=== PATIENT | male | born 1950 | race Caucasian/White ===

== ENCOUNTER 2019-05-12 01:46 | Emergency (ER) | payer MEDICARE, OTHER ==
[~2019-05-12] VITALS: Ht 185.4 cm; Wt 109.1 kg
[~2019-05-12 01:46] MED LIST: ACET325T26 PO; AMLO10TA4 PO; AMLO2.5T5 PO; AMLO5TAB4 PO; ASPI-515 PO; CALC-141 PO; CARV-39 PO; CLOP75TA52 PO; CYAN-27 PO; HYDR-3240 PO; INSU100I13 SQ; INSU100V14 SQ; LEVO500T47 PO; LOSA100T14 PO; METF10002 PO
[2019-05-12] MEDS ORDERED: methylPREDNISolone SOD SUCC 125 MG/2 ML IVPush STA (01:53)
[2019-05-12] MEDS ORDERED: ALBUTEROL/IPRATROPIUM 2.5MG/0.5MG, 3 ML NPPB ONE (02:00)
--- NOTE | 2019-05-12 02:05 | NUR ---
PT BIB EMS WITH COMPLAINTS OF SOB AND DIFFICULTY BREATHING OVER LAST FEW DAYS. PT DENIES CHEST PAIN, STEWART, N/V/D. PT FAMILY AT FOR SUPPORT. PT PROVIDED WARM BLANKET. PT CONNECTED TO MONITORING, CALL LIGHT WITHIN REACH, ALL SAFETY MEASURES IN PLACE.
[2019-05-12] MEDS ORDERED: ALBUTEROL/IPRATROPIUM 2.5MG/0.5MG, 3 ML ONE (02:06)
[2019-05-12 02:13] LABS: BASOPHILS # (AUTO) 0.05 x10^3/uL (0-0.1); BASOPHILS % (AUTO) 0 % (0-1); EOSINOPHILS # (AUTO) 0.66 x10^3/uL (0-0.4); EOSINOPHILS % (AUTO) 5 % (1-7); LYMPHOCYTES % (AUTO) 21 % (22-44); MD NO; MEAN CORPUSCULAR HEMOGLOBIN 28.3 pg (27.5-34.5); MEAN CORPUSCULAR HGB CONC 32.2 g/dL (33.2-36.2); MEAN CORPUSCULAR VOLUME 87.9 fL (81-97); MEAN PLATELET VOLUME 8.9 fL (7.4-10.4); MONOCYTES # (AUTO) 0.76 x10^3/uL (0.2-0.8); MONOCYTES % (AUTO) 6 % (2-9); NEUTROPHILS # (AUTO) 8.51 x10^3/uL (1.8-6.8); NEUTROPHILS % (AUTO) 68 % (42-75); PLATELET COUNT 254 x10^3/uL (130-400); RED CELL DISTRIBUTION WIDTH 15.4 % (9.4-14.8)
[2019-05-12] MEDS ORDERED: HYDR12.575 PO (02:17)
[2019-05-12] MEDS ORDERED: TAMS-11 PO (02:20)
[2019-05-12] MEDS ORDERED: FINA5TAB4 PO (02:20)
[2019-05-12] MEDS ORDERED: DOXA2TAB9 PO (02:20)
[2019-05-12 02:22] LABS: ALANINE AMINOTRANSFERASE 33 U/L (12-78); ALBUMIN 2.9 g/dL (3.4-5.0); ANION GAP 8 mmol/L (5-15); CHLORIDE 111 mmol/L (98-107); CREATININE 0.57 mg/dL (0.7-1.3)
[2019-05-12 02:26] LABS: ALKALINE PHOSPHATASE 96 U/L (45-117); BILIRUBIN,TOTAL 0.4 mg/dL (0.2-1.0); TOTAL PROTEIN 7.6 g/dL (6.4-8.2); TROPONIN I < 0.015 ng/mL (0.000-0.045)
[2019-05-12] MEDS ORDERED: methylPREDNISolone SOD SUCC 125 MG/2 ML ONE (02:38)
--- NOTE | 2019-05-12 02:43 | NUR ---
PT TO IMAGING AT THIS TIME.
--- NOTE | 2019-05-12 02:51 | NUR ---
PT BACK FROM IMAGING.
--- NOTE | 2019-05-12 03:50 | NUR ---
[facility] ETA AT THIS TIME [phone]
--- NOTE | 2019-05-12 04:25 | NUR ---
KISHORE CALLED NEW ETA [phone]
[2019-05-12] MEDS ORDERED: OMNIPAQUE 350 MG/ML, 100ML BOTTLE ONE (05:01)
[2019-05-12 05:02] VITALS: BP 162/68
--- NOTE | 2019-05-12 05:11 | NUR ---
[facility] HAS ARRIVED
[2019-05-13] MEDS ORDERED: INSU100C5 SQ-INSULIN (07:11)
[2019-05-13] MEDS ORDERED: TRIA1CAP3 PO (11:31)
[2019-05-13] MEDS ORDERED: CHOL100012 PO (11:32)
== END 2019-05-12 05:23 | disposition home or self-care (01) ==
LOC: ED 03:50
DX: R06.00 Dyspnea, unspecified (principal); I10 Essential (primary) hypertension; E11.9 Type 2 diabetes mellitus without complications; E78.00 Pure hypercholesterolemia, unspecified
CPT/HCPCS: 36415; 71275; 80053; 84484; 85025; 93005; 94640; 96374; 99284; J2930; J7620; Q9967